=== PATIENT | male | born 1980 | race Caucasian/White ===

== ENCOUNTER → 2020-01-28 | Outpatient (CLI) | payer OTHER ==
[~2020-01-28] MED LIST: CYCL10TA2 PO; IBUP-1027 PO; NAPR-514 PO
--- NOTE | 2020-01-28 13:08 | PAIN ---
DATE OF SERVICE: 01/28/2020 INITIAL CONSULTATION FOR PAIN CLINIC CHIEF COMPLAINT: Low back and left lower extremity pain. HISTORY OF PRESENT ILLNESS: This is a 39-year-old male who presents with history of pain in the low back, left lower extremity since August 2019, gradually increasing, not a result of any specific injury or action he is aware of and now radiating to posterior gluteus, posterior thigh, posterior calf, worse with activity, standing, walking, changing positions, waking him from sleep at least 2-3 times at night. The patient reports it does not affect his bowel or bladder control, but does affect his ability to walk with some significant fatigability of the left lower extremity, but not the right. The patient reports it is becoming more constant and sharp in the back, shooting in the leg, intermittent in intensity, but always present. The patient reports no symptoms on the right side. The patient rates his disability rating from 0-10, 10 being the worst, is a 6 with family home responsibilities, social activity, sexual behavior, 8 with recreation and occupational behavior, 2 with self-care and 4 with life support activities. The patient did have MRI scan of the lumbar spine showing at L4-L5 degenerative loss of disk space with a small suggesting a tear. L5-S1 shows [id number] degenerative loss of disk height and broad-based large central and left pericentral left lateral recess disk protrusion identified with moderate left and mild right foraminal narrowing identified as well. The patient reports he has had physical therapy, also try needling, chiropractic treatment, all of which were helpful at that time, but nothing long lasting. There is decreased in pain significantly. The patient is taking naproxen, ibuprofen as well as Flexeril and then naproxen. Ibuprofen do seem to help but the Flexeril has not been helpful and again is not allow him to sleep at night. PAST MEDICAL HISTORY: Significant for only his current back pain and previous vasectomy as well as the patient has been in good health. CURRENT MEDICATIONS: Include naproxen, ibuprofen and Cyclobenzaprine. ALLERGIES: THE PATIENT IS ALLERGIC TO PENICILLIN. FAMILY HISTORY: Significant for no major medical problems or conditions he is aware of. SOCIAL HISTORY: The patient drinks about 2-3 alcoholic drinks a week on average. Does not smoke, does not use any illegal, illicit or recreational drugs. He is , lives with his spouse, has 3 children living at home, lives in [place], [place]. He is active army duty. REVIEW OF SYSTEMS: The patient's review of systems is positive for those items mentioned in history of present illness. All systems reviewed and otherwise negative. It is complete, full and well documented on the patient's chart. PHYSICAL EXAMINATION: VITAL SIGNS: The patient's blood pressure 159/94, pulse 105, respirations 18, temperature 98.2 degrees Fahrenheit, height is 6 feet 3 inches, weight is 202 pounds. GENERAL: The patient is awake, alert, oriented, appropriate, very pleasant demeanor. HEENT: Shows normocephalic, atraumatic. Extraocular movements are intact and symmetrical. Oral cavity: Mucous membranes moist and pink. Dentition is intact. NECK: Shows anterior throat supple without palpable lymphadenopathy noted. Swallow reflex symmetrical. CHEST: Shows normal on inspection. Breath sounds are clear bilaterally. HEART: Shows S1, S2 clear. No murmurs auscultated. ABDOMEN: Soft, nontender, nondistended. No palpable organomegaly is noted. No rebound or guarding demonstrated. BACK: Shows spine grossly in the midline. Normal appearing cervical lordotic curvature, thoracic kyphotic curvature and lumbar lordotic curvature. Lumbar paraspinous muscle shows symmetrical on inspection, on palpation shows some moderate tenderness diffusely bilaterally going diffusely without significant radiation. The patient does show good rotational motion of lumbar spine, both laterally as well as extension, flexion, without difficulty. No tenderness over the spinous processes, sacrum or sacroiliac regions with direct palpation. EXTREMITIES: The patient's lower extremities show deep tendon reflexes at 2+ in the patellar, 1+ tendo-calcaneus tendons are equal. Motor exam is strong with 5/5 dorsiflexion, extension, quadriceps and hamstring flexion and symmetrical. Peripheral pulses are 1+ posterior tibia. No peripheral edema is noted bilaterally. Lower extremities are warm and dry to touch, equal in color and appearance. Straight leg raise noted to be negative for reproduction of radicular symptoms bilaterally. Gaenslen's and Panda's maneuvers are negative bilaterally as well. The patient is able to stand, stand on his toes without difficulty or loss of balance, walks with a normal appearing gait, does not appear to favor the right or left lower extremity significantly and is not using any assistive devices to ambulate. SKIN: Shows warm and dry, good turgor. No edema. No sores, rashes or bruising throughout. IMPRESSION: 1. This is a 39-year-old male with approximate 5-month history of low back and left lower extremity pain in a radicular fashion. 2. Lumbar MRI scan as noted. 3. Status post physical therapy, chiropractic and dry needling without significant improvement. PLAN: Options were discussed with the patient including conservative medical managements, continued physical therapies, interventional techniques. He would like to pursue interventional techniques. We discussed a lumbar epidural steroid injection using description as well as anatomical models to describe the procedure. Risks were then discussed and the patient will wait for preauthorization from his insurance provider. In the meantime, we will maintain with stretching and strengthening exercises at home as well as walking and exercising as tolerated. The patient returns approximately 1 week to plan on lumbar epidural steroid injection at that time, L5-S1 translaminar approach on the left for clinical left L5-S1 radiculopathy. JANELLE LIZAMA MD DR: MERA/luis JOB#: [id number] / [id number]
== END ==
LOC: PNCL 11:16
PROVIDERS: ATTEND Anesthesiology
DX: M48.07 Spinal stenosis, lumbosacral region (principal); M79.605 Pain in left leg; M54.5 Low back pain
CPT/HCPCS: G0463

== ENCOUNTER → 2020-01-30 | Outpatient (CLI) | payer OTHER ==
[~2020-01-30] MED LIST changes: +IOHEXOL 180 MG/ML 10 ML VIAL. ONE; +methylPREDNISolone ACETATE 40 MG/ML VIAL. ONE; +methylPREDNISolone ACETATE 80 MG/ML VIAL. ONE
--- NOTE | 2020-01-30 12:51 | PAIN ---
DATE OF SERVICE: 01/30/2020 PROGRESS NOTE FOR PAIN CLINIC DIAGNOSES: Lumbar radiculopathy with lumbar degenerative disk disease. HISTORY OF PRESENT ILLNESS: The patient is a 39-year-old male who returns for followup status post initial evaluation and preauthorization for lumbar epidural steroid injection. The patient has obtained that now and would like to proceed. Still has some pain in the low back, left lower extremity, posterior gluteus, posterior thigh and posterior calf. The patient reports it is an 8 on a scale of 10 at its worst over the past week, 6 on average, 3 at its least and is a 6 today. The patient reports no new motor or sensory deficits, no new bowel or bladder incontinence, still better with sitting or lying down, does not awaken him from sleep at night. The patient reports no new changes, no new bowel or bladder concerns. PHYSICAL EXAMINATION: VITAL SIGNS: The patient's blood pressure 162/103, pulse 91, respirations 18, temperature 98.8 degrees Fahrenheit, height is 6 feet 3 inches and weight is 202 pounds. GENERAL: The patient is awake, alert, oriented, appropriate, very pleasant demeanor. HEENT: Head shows normocephalic, atraumatic. Extraocular movements are intact and symmetrical. Oral cavity: Mucous membranes are moist and pink. Dentition is intact. NECK: Shows anterior throat supple without palpable lymphadenopathy noted. Swallow reflex symmetrical. CHEST: Shows normal on inspection. Breath sounds are clear bilaterally. HEART: Shows S1, S2 clear. No murmurs auscultated. ABDOMEN: Soft, nontender, nondistended. No palpable organomegaly is noted. No rebound or guarding demonstrated. BACK: Shows spine grossly in the midline. Normal appearing thoracic kyphosis and lumbar lordotic curvature. Lumbar paraspinous muscle shows symmetrical on inspection, with palpation shows some moderate tenderness diffusely bilaterally, but only diffusely without significant radiation. EXTREMITIES: The patient's lower extremities show deep tendon reflexes at 2+ patellar, 1+ in the calcaneus tendons. Motor exam is strong with 5/5 dorsiflexion, extension, quadriceps and hamstring flexion is symmetrical. Peripheral pulses are 1+. No peripheral edema is noted. Options were discussed with the patient. The patient's old chart was reviewed as his current medication regimen updated. Current review of system was updated today as well. We will proceed with a lumbar epidural steroid injection today with fluoroscopic guidance. Risks were again discussed including, but not limited to bleeding, infection, possibility of epidural hematoma, subsequent neurological compromise, dural puncture, headaches, spinal cord and/or nerve damage, side effects of steroid medication and poor results regarding pain control. The patient understands and wished to proceed. The patient will return to the clinic in approximately 2 weeks for followup. He was counseled on return appointment, activity level and side effects to be aware of. DIAGNOSIS: Lumbar radiculopathy with lumbar degenerative disk disease. PROCEDURE: Lumbar epidural steroid injection, translaminar approach L5-S1 level using C-arm fluoroscopic guidance under sterile prep and drape using local anesthetic. MEDICATION INJECTED: A total of 120 mg Depo-Medrol plus 10 mL of preservative-free normal saline and 2 mL of contrast. CONDITION AT DISCHARGE: Stable. The patient tolerated procedure well, had no complications. JANELLE LIZAMA MD DR: MERA/luis JOB#: [id number] / [id number]
== END ==
LOC: PNCL 12:31
PROVIDERS: ATTEND Anesthesiology
DX: M51.16 Intervertebral disc disorders with radiculopathy, lumbar region (principal)
CPT/HCPCS: 62323; J1030; J1040; Q9965

== ENCOUNTER → 2020-02-19 | Outpatient (CLI) | payer OTHER ==
--- NOTE | 2020-02-19 10:43 | PAIN ---
DATE OF SERVICE: 02/19/2020 PROGRESS NOTE FOR PAIN CLINIC DIAGNOSES: Lumbar radiculopathy with lumbar degenerative disk disease. HISTORY OF PRESENT ILLNESS: The patient is a 39-year-old male who returns for followup status post lumbar epidural steroid injection x 1. The patient reports about 50% improvement for about 2 weeks following the first injection. The patient reports pain is beginning to return now in the low back and left lower extremity, posterior gluteus, posterior thigh, posterior calf, but only much less than it was previously. The patient reports it is dull and shooting, tingling and radiating in the low back and leg. The patient reports initially he was doing much better with increased activity at home as well as at work, doing workouts and reports that it began to return about exactly 2 weeks after the injection. The patient reports no new motor or sensory deficits, no new bowel or bladder incontinence or other complaints, it has been awakening him from sleep as well over the past few days, which it did not for the first 2 weeks as well. PHYSICAL EXAMINATION: VITAL SIGNS: The patient's blood pressure 155/85, pulse 94, respirations 18, temperature 98.4 degrees Fahrenheit, weight is 198 pounds. GENERAL: The patient is awake, alert, oriented, appropriate, very pleasant demeanor. HEENT: Exam shows normocephalic, atraumatic. Extraocular movements are intact and symmetrical. Oral cavity shows mucous membranes moist and pink. Dentition is intact. NECK: Shows anterior throat supple without palpable lymphadenopathy noted. Swallow reflex symmetrical. CHEST: Shows normal on inspection. Breath sounds clear bilaterally. HEART: Shows S1, S2 clear. No murmurs auscultated. ABDOMEN: Soft, nontender, nondistended. No palpable organomegaly is noted. No rebound or guarding demonstrated. BACK: Shows spine grossly in the midline. Normal appearing thoracic kyphosis and lumbar lordotic curvature. Lumbar paraspinous muscle shows symmetrical on inspection, only very mild tenderness in the low lumbar distribution on the left than on the right, without asymmetry, without atrophy, hypertrophy, no trigger points. The patient has good rotational motion of lumbar spine, both laterally as well as extension and flexion without significant increase in pain. EXTREMITIES: Lower extremities show deep tendon reflexes 2+ in the patellar, 1+ tendo-calcaneus tendons. Motor exam is strong with 5/5 dorsiflexion, extension, quadriceps and hamstring flexion symmetrical. Peripheral pulses are 1+ posterior tibia. No peripheral edema is noted bilaterally. Options were discussed with the patient. The patient's old chart was reviewed as his current medication regimen updated. Current review of systems updated today as well. We will proceed with a second in a series of lumbar epidural steroid injection today with fluoroscopic guidance. Risks were again discussed including, but not limited to bleeding, infection, possibility of epidural hematoma, subsequent neurological compromise, dural puncture, headaches, spinal cord and/or nerve damage, side effects of steroid medication and poor results regarding pain control. The patient understands and wished to proceed. The patient will return to clinic in approximately 2 weeks for followup, he was counseled on return appointment, activity level and side effects to be aware of. DIAGNOSIS: Lumbar radiculopathy with lumbar degenerative disk disease. PROCEDURE: Lumbar epidural steroid injection, translaminar approach L5-S1 level using C-arm fluoroscopic guidance under sterile prep and drape using local anesthetic. MEDICATION INJECTED: A total of 120 mg Depo-Medrol plus 10 mL of preservative-free normal saline and 2 mL of contrast. CONDITION AT DISCHARGE: Stable. The patient tolerated procedure well, had no complications. JANELLE LIZAMA MD DR: MERA/luis JOB#: [id number] / [id number]
== END ==
LOC: PNCL 09:13
PROVIDERS: ATTEND Anesthesiology
DX: M51.16 Intervertebral disc disorders with radiculopathy, lumbar region (principal)
CPT/HCPCS: 62323; J1030; J1040; Q9965

== ENCOUNTER → 2020-03-04 | Outpatient (CLI) | payer OTHER ==
--- NOTE | 2020-03-04 12:02 | PAIN ---
DATE OF SERVICE: 03/04/2020 PROGRESS NOTE FOR PAIN CLINIC DIAGNOSES: Lumbar radiculopathy with lumbar degenerative disk disease. HISTORY OF PRESENT ILLNESS: The patient will be a 39-year-old male who returns for followup status post lumbar epidural steroid injection x 2. The patient reports about 70% improvement after the last injection, he has been doing quite a bit better. The patient is quite pleased with his progress thus far. The pain is reducing with every injection that he has had thus far, still has some pain in the low back, left lower extremity, posterior gluteus, posterior thigh, posterior calf, but much improved. He has been increasing his activity with greater distance walking, sleeping better at night, doing work activities, household activities, recreational activities with much greater ease and comfort, does not awaken him from sleep. The patient reports it is usually worse pain at first thing in the morning. Once he is up and around for about half an hour or so, the pain begins to subside. The patient describes it as tingling and burning in the leg, in the back, it is sharp and shooting at times as well. The patient rates it as a 7 on a scale of 10 at its worst over the past week, 3 on average, 1 at its least and is a 3 today. The patient reports no new motor or sensory deficits, no new bowel or bladder incontinence or other complaints. PHYSICAL EXAMINATION: VITAL SIGNS: The patient's blood pressure is 149/87, pulse 81, respirations 16, temperature 98.4 degrees Fahrenheit, weight is 200 pounds. GENERAL: The patient is awake, alert, oriented, appropriate, very pleasant demeanor. HEENT: Shows normocephalic, atraumatic. Extraocular movements are intact and symmetrical. Oral cavity shows mucous membranes moist and pink. Dentition is intact. NECK: Shows anterior throat supple without palpable lymphadenopathy noted. Swallow reflex symmetrical. CHEST: Shows normal on inspection. Breath sounds clear bilaterally. No rales, rhonchi or wheezes auscultated. BACK: The patient's back shows spine grossly in the midline. Normal appearing thoracic kyphosis and lumbar lordotic curvature. Lumbar paraspinous muscle shows symmetrical on inspection, on palpation shows some moderate tenderness diffusely bilaterally, but only diffusely without significant radiation. The patient has good rotational motion of lumbar spine, both laterally as well as extension and flexion without difficulty. EXTREMITIES: Lower extremities show deep tendon reflexes 2+ in the patellar, 1+ tendo-calcaneus tendons. Motor exam is 5/5 with dorsiflexion, extension, quadriceps and hamstring flexion symmetrical. Peripheral pulses are 1+ posterior tibia. No peripheral edema is noted bilaterally. Options were discussed with the patient. The patient's old chart was reviewed as his current medication regimen updated. Current review of systems updated today as well. We will proceed with a third in a series of lumbar epidural steroid injection today with fluoroscopic guidance. Risks were again discussed including, but not limited to bleeding, infection, possibility of epidural hematoma, subsequent neurological compromise, dural puncture, headaches, spinal cord and/or nerve damage, side effects of steroid medication and poor results regarding pain control. The patient understands and wished to proceed. The patient will return to clinic in approximately 2 weeks for followup. He was counseled on return appointment, activity level and side effects to be aware of. DIAGNOSES: Lumbar radiculopathy with lumbar degenerative disk disease. PROCEDURE: Lumbar epidural steroid injection, translaminar approach L5-S1 level using C-arm fluoroscopic guidance under sterile prep and drape using local anesthetic. MEDICATION INJECTED: A total of 120 mg Depo-Medrol plus 10 mL preservative-free normal saline and 2 mL of contrast. CONDITION AT DISCHARGE: Stable. The patient tolerated the procedure well, had no complications. JANELLE LIZAMA MD DR: MERA/luis JOB#: [id number] / [id number]
== END ==
LOC: PNCL 08:58
PROVIDERS: ATTEND Anesthesiology
DX: M51.16 Intervertebral disc disorders with radiculopathy, lumbar region (principal)
CPT/HCPCS: 62323; J1030; J1040; Q9965

== ENCOUNTER → 2020-03-24 | Outpatient (CLI) | payer OTHER ==
--- NOTE | 2020-03-24 14:43 | PAIN ---
DATE OF SERVICE: 03/24/2020 PROGRESS NOTE FOR PAIN CLINIC DIAGNOSES: Lumbar radiculopathy with lumbar degenerative disk disease. HISTORY OF PRESENT ILLNESS: The patient is a 39-year-old male who returns for followup status post lumbar epidural steroid injection x 3, most recently 03/04/2020. 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 We petitioned for this and it has been accepted. The patient would like to proceed. Still pain in the low back, left lower extremity and tingling in the hip and leg, but much improved since initially started in therapies and the injections. The patient reports he is sleeping well at night. He has been increasing his distance walking, doing work activities, household activities with greater ease and comfort, traveling with greater ease as well, some increased activity recently with getting ready to move, but otherwise doing very well. The patient reports no new motor or sensory deficits, rates his pain as a 7 on a scale of 10 at its worst over the past week, 3 on average, 1 at its least and is a 1 today. The patient reports it is shooting at times, tingling and burning in the back and leg. PHYSICAL EXAMINATION: VITAL SIGNS: The patient's blood pressure is 137/86, pulse 91, respirations 18, temperature 98.3 degrees Fahrenheit, height 6 feet 3 inches, weight is 199 pounds. GENERAL: The patient is awake, alert, oriented, appropriate, very pleasant demeanor. HEENT: Shows normocephalic, atraumatic. Extraocular movements are intact and symmetrical. Oral cavity shows mucous membranes moist and pink. Dentition is intact. NECK: Shows anterior throat supple without palpable lymphadenopathy noted. Swallow reflex symmetrical. CHEST: Shows normal on inspection. Breath sounds are clear bilaterally. HEART: Shows S1, S2 clear. No murmurs auscultated. ABDOMEN: Soft, nontender, nondistended. No palpable organomegaly is noted. There is no rebound or guarding demonstrated. BACK: Shows spine grossly in the midline. Normal appearing thoracic kyphosis and lumbar lordotic curvature. Lumbar paraspinous muscle shows symmetrical on inspection, on palpation shows some moderate tenderness diffusely bilaterally, but only diffusely in the low lumbar distribution without radiation. The patient has good rotational motion of lumbar spine, both laterally as well as extension and flexion without difficulty. EXTREMITIES: Lower extremities show deep tendon reflexes 2+ in the patellar, 1+ tendo-calcaneus tendons. Motor exam is approximately 5/5 with dorsiflexion, extension, quadriceps and hamstring flexion symmetrical. Peripheral pulses are 1+ posterior tibia. No peripheral edema is noted. Options were discussed with the patient. The patient's old chart was reviewed as his current medication regimen updated. Current review of systems updated today as well. We will proceed with additional lumbar epidural steroid injection today with fluoroscopic guidance. Risks were again discussed including, but not limited to bleeding, infection, possibility of epidural hematoma, subsequent neurological compromise, dural puncture, headaches, spinal cord and/or nerve damage, side effects of steroid medication and poor results regarding pain control. The patient understands and wished to proceed. The patient will return to clinic in approximately 2 weeks for followup. He was counseled on return appointment, activity level and side effects to be aware of. DIAGNOSES: Lumbar radiculopathy with lumbar degenerative disk disease. PROCEDURE: Lumbar epidural steroid injection, translaminar approach L5-S1 level using C-arm fluoroscopic guidance under sterile prep and drape using local anesthetic. MEDICATION INJECTED: A total of 120 mg Depo-Medrol plus 10 mL of preservative-free normal saline and 2 mL of contrast. CONDITION AT DISCHARGE: Stable. The patient tolerated procedure well, had no complications. JANELLE LIZAMA MD DR: MERA/luis JOB#: [id number] / [id number]
== END ==
LOC: PNCL 13:13
PROVIDERS: ATTEND Anesthesiology
DX: M51.16 Intervertebral disc disorders with radiculopathy, lumbar region (principal)
CPT/HCPCS: 62323; J1030; J1040; Q9965